=== PATIENT | female | born 1955 | race Caucasian/White ===

== ENCOUNTER 2021-11-09 09:54 | Emergency (ER) | payer OTHER ==
[~2021-11-09 09:54] MED LIST: CELEXA20 MG PO; CYANOCOBAL1000 MCG/1 SC; DICLOFENAC SODI75 MG PO; LEVO-T75 MCG PO; OMEPRAZOLE40 MG PO; VIT D PO
[2021-11-09 10:57] LABS: BASOPHIL 0.9 % (0-2); EOSINOPHIL 1.4 % (0-5); HCT 48.9 % (37.0-47.0); HGB 15.4 g/dl (12.5-16.0); LYMPHOCYTE 25.9 % (15-48); MCH 27.9 pg (25.0-31.0); MCHC 31.5 g/dL (32.0-36.0); MCV 88.6 fL (78.0-100.0); MONOCYTE 7.6 % (0-12); MPV 9.7 fL (6.0-9.5); NEUTROPHIL 63.7 % (41-80); NRBC 0; PLT 248 K/uL (150-400); RBC 5.52 M/uL (4.20-5.40); WBC 5.6 K/uL (4.0-10.5)
[2021-11-09 10:58] LABS: BILIRUBIN NEGATIVE (NEGATIVE); BLOOD 2+ Ery/uL (NEGATIVE); COLOR YELLOW (YELLOW); GLUCOSE (U) NORMAL (NORMAL); LEUKOCYTES NEGATIVE Leu/uL (NEGATIVE); NITRITE NEGATIVE (NEGATIVE); PROTEIN NEGATIVE (NEGATIVE); SPECIFIC GRAVITY 1.015 (1.001-1.030)
[2021-11-09 11:00] LABS: CLARITY HAZY (CLEAR)
[2021-11-09 11:15] LABS: BACTERIA 2+
[2021-11-09 11:19] LABS: BILIRUBIN - TOTAL 0.6 mg/dL (0.2-1.0); BUN/CREAT RATIO (CALC) 26.3 RATIO; CREATININE 0.57 mg/dL (0.51-0.95); GLOBULIN (CALCULATION) 3.4 g/dL; POTASSIUM 4.1 mmol/L (3.5-5.1); TOTAL PROTEIN 7.4 g/dL (6.4-8.2)
[2021-11-09] MEDS ORDERED: BACTRIM DS TAB1 EACH PO ×2 (13:05→13:14)
[2021-11-09] MEDS ORDERED: DIFLUCAN150 MG PO ×2 (13:05→13:14)
== END 2021-11-09 13:35 | disposition home or self-care (01) ==
LOC: FER 09:54
PROVIDERS: Emergency Medicine
DX: N39.0 Urinary tract infection, site not specified (principal); R10.12 Left upper quadrant pain; R10.32 Left lower quadrant pain; Z86.16 Personal history of COVID-19
CPT/HCPCS: 36415; 80053; 81001; 82150; 83690; 85025; J1885; Q9967